=== PATIENT | male | born 1960 | race Native Hawaiian/Other Pacific Islander ===

== ENCOUNTER 2018-12-14 07:06 | Day surgery (SDC) | payer OTHER ==
[2018-12-14 09:03] VITALS: TEMP 99; O2SAT 100
--- NOTE | 2018-12-14 09:58 | CP.SDSHP ---
Same Day Surgery H & P - History Proposed Procedure: screening colonoscopy Pre-Op Diagnosis: screening for colon cancer - Previous Medical/Surgical History Misc: Other (DJD) Previous Surgical History: Denies - Allergies Allergies: Allergies No Known Allergies Allergy (Verified 12/13/18 10:11) - Physical Exam Vital Signs: Vital Signs 12/14/18 07:55 Temperature 99 F Pulse Rate 73 Respiratory 20 Rate Blood Pressure 140/81 O2 Sat by Pulse 100 Oximetry Mental Status: Alert & Oriented x3 Neuro: WNL Heart: WNL Lungs: WNL GI: WNL - Impression Impression: Screening for colon cancer (routine) Pt. Evaluated Today:Candidate for Anesthesia & Procedure: Yes - Date & Time Date: 12/14/18 Time: 09:58 Short Stay Discharge - Short Stay Discharge Admitting Diagnosis/Reason for Visit: ENCOUNTER FOR SCREENING Disposition: HOME/ ROUTINE
[2018-12-14] MEDS ORDERED: Propofol 10 mg/ml Inj (20 ML) ONE (10:02)
[2018-12-14] MEDS ORDERED: Lactated Ringer's 500 ML IV ONE ×2 (10:04)
[2018-12-14 10:10] VITALS: PULSE 90; RESP 18
[2018-12-14] MEDS ORDERED: Lactated Ringer's 500 ML IV SCH (10:30)
[2018-12-14 11:28] VITALS: BP 123/69
== END 2018-12-14 12:03 | disposition home or self-care (01) ==
LOC: C.ENDO 07:06
PROVIDERS: ATTEND Internal Medicine Gastroenterology
DX: D12.7 Benign neoplasm of rectosigmoid junction (principal); Z12.11 Encounter for screening for malignant neoplasm of colon; D12.4 Benign neoplasm of descending colon; D12.3 Benign neoplasm of transverse colon; K64.8 Other hemorrhoids
CPT/HCPCS: 45380; 45385; 88305; J2704; J3010; J7120